=== PATIENT | female | born 1995 | race Caucasian/White ===

== ENCOUNTER 2022-11-25 12:57 | Emergency (ER) | payer OTHER ==
[~2022-11-25] VITALS: Ht 167.6 cm; Wt 45.5 kg
[2022-11-25 13:02] VITALS: TEMP 98.7
[2022-11-25 13:56] LABS: COVID AG,FIA SOURCE NASAL SWAB
[2022-11-25 14:30] LABS: SARS-COV2 (COVID) ANTIGEN,FIA Negative (Negative)
[2022-11-25 14:31] LABS: INFLUENZA TYPE A NEGATIVE FOR TYPE A (NEGATIVE); INFLUENZA TYPE B NEGATIVE FOR TYPE B (NEGATIVE)
[2022-11-25 15:05] LABS: BASOPHILS % (AUTO) 0.7 % (0.0-2.0); EOSINOPHILS % (AUTO) 0.5 % (1.0-6.0); HEMATOCRIT 39.8 % (36-46); HEMOGLOBIN 13.1 g/dL (12.0-16.0); LYMPHOCYTES # (AUTO) 1.7 K/uL (1.0-4.8); LYMPHOCYTES % (AUTO) 16.9 % (22.0-44.0); MEAN CORPUSCULAR HEMOGLOBIN 27.9 pg (26.0-34.0); MEAN CORPUSCULAR HGB CONC 32.9 G/dL (31.0-37.0); MEAN CORPUSCULAR VOLUME 85 fL (80-100); MONOCYTES # (AUTO) 0.6 K/uL (0.1-1.0); MONOCYTES % (AUTO) 5.8 % (2.0-9.0); NEUTROPHILS # (AUTO) 7.8 K/uL (1.8-7.7); NEUTROPHILS % (AUTO) 76.1 % (40.0-70.0); PLATELET COUNT (AUTO) 177 K/uL (150-450); RED CELL DISTRIBUTION WIDTH 14.4 % (11.5-14.5); WHITE BLOOD COUNT (AUTO) 10.2 K/uL (4.5-11.0)
[2022-11-25 15:09] LABS: APPEARANCE,URINE CLEAR (CLEAR); BILIRUBIN,URINE NEGATIVE (NEGATIVE); COLOR,URINE LIGHT YELLOW (YELLOW); GLUCOSE, URINE (UA) NEGATIVE (NEGATIVE); KETONES,URINE 40-60 mg/dL (NEGATIVE); LEUKOCYTE ESTERASE ,URINE NEGATIVE (NEGATIVE); NITRATE,URINE NEGATIVE (NEGATIVE); OCCULT BLOOD,URINE NEGATIVE (NEGATIVE); PH,URINE 5.5 (5.0-8.0); PH,URINE DRUG SCREEN 5.5 (5.0-8.0); PROTEIN,URINE TRACE mg/dL (NEGATIVE); SPECIFIC GRAVITIY, URINE 1.022 (1.003-1.030); UROBILINOGEN,URINE <=1.0 mg/dL (<=1.0)
[2022-11-25 15:12] LABS: ANION GAP 10 mmol/L (8-16); CALCIUM, TOTAL 9.1 mg/dL (8.8-10.5); CARBON DIOXIDE 26 mmol/L (22-29); CHLORIDE 102 mmol/L (98-107); CREATININE 0.61 mg/dL (0.60-1.30); GLOMERULAR FILTR. RATE CALC > 60 mL/min (>60); GLUCOSE,RANDOM 88 mg/dL (70-110); POTASSIUM 4.4 mmol/L (3.5-5.1); SODIUM SERUM 138 mmol/L (136-145); UREA NITROGEN, BLOOD 7 mg/dL (7-18)
[2022-11-25 15:15] LABS: ALCOHOL, URINE DRUG SCREEN NEGATIVE (NEGATIVE); AMPHET/METH SCREEN,URINE NEGATIVE (NEGATIVE); BARBITURATE SCREEN, URINE NEGATIVE (NEGATIVE); BENZODIAZEPINES SCREEN,URINE NEGATIVE (NEGATIVE); CANNABINOID SCREEN,URINE NEGATIVE (NEGATIVE); COCAINE SCREEN,URINE NEGATIVE (NEGATIVE); METHADONE SCREEN, URINE NEGATIVE (NEGATIVE); OPIATE SCREEN,URINE NEGATIVE (NEGATIVE); PHENCYCLIDINE SCREEN,URINE NEGATIVE (NEGATIVE)
[2022-11-25 15:19] LABS: ALANINE AMINOTRANSFERASE 12 U/L (12-78); ALBUMIN 4.4 g/dL (3.4-5.0); ALKALINE PHOSPHATASE 53 U/L (46-116); ASPARTATE AMINOTRANSFERASE 16 U/L (15-37); TOTAL PROTEIN, SERUM 7.7 g/dL (6.4-8.2)
[2022-11-25 15:26] LABS: BACTERIA,URINE None Seen /HPF (None Seen); RBC,URINE None Seen /HPF (0-2); WBC,URINE None Seen /HPF (0-5)
[2022-11-25 15:38] VITALS: BP 106/55; PULSE 66; RESP 18
[2022-11-25] MEDS ORDERED: LORA-1000 PO (15:50)
[2022-11-25] MEDS ORDERED: IBUP-45 PO (15:50)
== END 2022-11-25 15:58 | disposition home or self-care (01) ==
LOC: EMS 13:06
DX: N83.201 Unspecified ovarian cyst, right side (principal); F41.9 Anxiety disorder, unspecified; Z20.822 Contact with and (suspected) exposure to COVID-19
CPT/HCPCS: 71045; 76856; 80053; 80307; 81001; 84703; 85025; 87804; 93005; 99285; 36415-L1; 36415-TC

== ENCOUNTER 2022-12-19 16:30 | Emergency (ER) | payer OTHER ==
[~2022-12-19] VITALS: Ht 162.6 cm; Wt 44.5 kg
[~2022-12-19 16:30] MED LIST: IBUP-45 PO; LORA-1000 PO
[2022-12-19 16:48] VITALS: BP 99/57; PULSE 84; RESP 18; TEMP 98.9
[2022-12-19 17:12] LABS: COVID AG,FIA SOURCE NASAL SWAB
[2022-12-19 17:32] LABS: INFLUENZA TYPE A NEGATIVE FOR TYPE A (NEGATIVE); INFLUENZA TYPE B NEGATIVE FOR TYPE B (NEGATIVE)
[2022-12-19 17:40] LABS: SARS-COV2 (COVID) ANTIGEN,FIA Positive (Negative)
== END 2022-12-19 19:12 | disposition left against medical advice (07) ==
LOC: EMS 16:31
DX: R07.89 Other chest pain (principal); R05.9 Cough, unspecified; R53.81 Other malaise; Z20.822 Contact with and (suspected) exposure to COVID-19; Z53.21 Procedure and treatment not carried out due to patient leaving prior to being seen by health care provider
CPT/HCPCS: 87804; 99281; Z7502

== ENCOUNTER 2023-08-10 07:05 | Emergency (ER) | payer OTHER ==
[~2023-08-10] VITALS: Ht 165.1 cm; Wt 47.3 kg
[2023-08-10 07:08] VITALS: TEMP 97.8
[2023-08-10 07:43] VITALS: BP 104/71; PULSE 68; RESP 16
[2023-08-10] MEDS ORDERED: TRAM50TA5 PO (07:49)
[2023-08-10] MEDS: TraMADol HCL 50 MG TABLET PO ONE (08:17)
== END 2023-08-10 08:29 | disposition home or self-care (01) ==
LOC: EMS 07:05
DX: S52.202A Unspecified fracture of shaft of left ulna, initial encounter for closed fracture (principal); X58.XXXA Exposure to other specified factors, initial encounter; Y93.89 Activity, other specified; Y92.89 Other specified places as the place of occurrence of the external cause; Y99.8 Other external cause status
CPT/HCPCS: 99284; 73090-TC; 73110-TC; Z7502; Z7610

== ENCOUNTER 2023-08-22 20:37 | Emergency (ER) | payer OTHER ==
[~2023-08-22] VITALS: Ht 165.1 cm; Wt 40.9 kg
[~2023-08-22 20:37] MED LIST changes: +TRAM50TA5 PO
[2023-08-22 20:42] VITALS: BP 106/67; PULSE 115; RESP 16; TEMP 97.6
[2023-08-22 21:25] LABS: EOSINOPHILS % (AUTO) 2.3 % (1.0-6.0); HEMATOCRIT 42.8 % (36-46); HEMOGLOBIN 14.1 g/dL (12.0-16.0); LYMPHOCYTES # (AUTO) 2.6 K/uL (1.0-4.8); MEAN CORPUSCULAR HEMOGLOBIN 27.6 pg (26.0-34.0); MEAN CORPUSCULAR VOLUME 84 fL (80-100); MONOCYTES # (AUTO) 0.6 K/uL (0.1-1.0); NEUTROPHILS # (AUTO) 5.4 K/uL (1.8-7.7); NEUTROPHILS % (AUTO) 60.7 % (40.0-70.0); PLATELET COUNT (AUTO) 254 K/uL (150-450); RED BLOOD CELL COUNT(AUTO) 5.12 MIL/uL (4.00-5.20); RED CELL DISTRIBUTION WIDTH 14.5 % (11.5-14.5); WHITE BLOOD COUNT (AUTO) 8.8 K/uL (4.5-11.0)
[2023-08-22 21:34] LABS: ANION GAP 9 mmol/L (8-16); CALCIUM, TOTAL 9.6 mg/dL (8.8-10.5); CARBON DIOXIDE 30 mmol/L (22-29); CHLORIDE 99 mmol/L (98-107); GLOMERULAR FILTR. RATE CALC > 60 mL/min (>60); GLUCOSE,RANDOM 113 mg/dL (70-110); POTASSIUM 3.6 mmol/L (3.5-5.1); SODIUM SERUM 138 mmol/L (136-145); UREA NITROGEN, BLOOD 11 mg/dL (7-18)
[2023-08-22 21:38] LABS: B-TYPE NATRIURETIC PEPTIDE 6 pg/mL (0-100)
[2023-08-22 21:40] LABS: GLUCOMETER DEV NAME(LOC) ER.7; GLUCOSE,POINT OF CARE 96 MG/DL (70-110)
[2023-08-22 21:41] LABS: ALANINE AMINOTRANSFERASE 31 U/L (12-78); ALBUMIN 4.5 g/dL (3.4-5.0); ALKALINE PHOSPHATASE 64 U/L (46-116); ASPARTATE AMINOTRANSFERASE 28 U/L (15-37); BILIRUBIN,TOTAL 0.7 mg/dL (0.1-1.0); CREATINE KINASE, TOTAL ONLY 49 U/L (26-192); PHOSPHORUS 4.6 mg/dL (2.5-4.9); TOTAL PROTEIN, SERUM 8.8 g/dL (6.4-8.2)
[2023-08-22 21:43] LABS: TROPONIN I-HIGH SENSITIVITY Less Than 4 ng/L (<51)
== END 2023-08-22 22:39 | disposition home or self-care (01) ==
LOC: EMS 20:38
DX: R53.1 Weakness (principal)
CPT/HCPCS: 71045; 80053; 82550; 82962; 83735; 83880; 84100; 84484; 84703; 85025; 93005; 99285; 36415-L1; 36415-TC

== ENCOUNTER 2024-04-19 00:29 | Emergency (ER) | payer OTHER ==
[~2024-04-19] VITALS: Ht 165.1 cm; Wt 40.9 kg
[~2024-04-19 00:29] MED LIST changes: -LORA-1000 PO; +LORA1TAB25 PO
[2024-04-19 00:40] VITALS: BP 94/56; PULSE 94; RESP 18; TEMP 98.3; O2SAT 100
[2024-04-19] MEDS ORDERED: HYDR-4072 PO (15:30)
== END 2024-04-19 01:39 | disposition left against medical advice (07) ==
LOC: EMS 00:30
DX: M79.632 Pain in left forearm (principal); Z53.21 Procedure and treatment not carried out due to patient leaving prior to being seen by health care provider

== ENCOUNTER 2024-04-19 12:35 | Emergency (ER) | payer OTHER ==
[~2024-04-19] VITALS: Ht 165.1 cm; Wt 41.8 kg
[2024-04-19 12:39] VITALS: TEMP 98
[2024-04-19] MEDS: TraMADol HCL 50 MG TABLET PO ONE (13:30)
[2024-04-19] MEDS: ACETAMINOPHEN 325 MG TABLET PO ONE (14:36)
[2024-04-19] MEDS: IBUPROFEN 400 MG TABLET PO ONE (14:36)
[2024-04-19] MEDS: OxyCODONE HCL 5 MG IR TABLET PO ONE (14:36)
[2024-04-19] MEDS ORDERED: HYDR-4072 PO (15:30)
[2024-04-19 15:47] VITALS: BP 91/64; PULSE 63; RESP 14; O2SAT 99
== END 2024-04-19 15:48 | disposition home or self-care (01) ==
LOC: EMS 12:35
DX: S52.602A Unspecified fracture of lower end of left ulna, initial encounter for closed fracture (principal); F41.9 Anxiety disorder, unspecified; X58.XXXA Exposure to other specified factors, initial encounter; Y93.K1 Activity, walking an animal; Y92.89 Other specified places as the place of occurrence of the external cause; Y99.8 Other external cause status
CPT/HCPCS: 99284; 73090-TC; 73100-TC; Z7502; Z7610

== ENCOUNTER 2024-10-29 13:30 | Emergency (ER) | payer OTHER ==
[~2024-10-29] VITALS: Ht 165.1 cm; Wt 4.2 kg
[~2024-10-29 13:30] MED LIST changes: +HYDR-4072 PO
[2024-10-29 13:35] VITALS: TEMP 98.1
[2024-10-29] MEDS ORDERED: IBUP-1492 PO (15:49)
[2024-10-29] MEDS ORDERED: DIPH-1243 PO (15:49)
[2024-10-29] MEDS: KETOROLAC TROMETHAMINE 30 MG/ML VIAL IM ONE (15:59)
[2024-10-29 16:15] VITALS: BP 102/60; PULSE 74; RESP 15; O2SAT 100
== END 2024-10-29 16:16 | disposition home or self-care (01) ==
LOC: EMS 13:30
DX: H00.011 Hordeolum externum right upper eyelid (principal); F41.9 Anxiety disorder, unspecified; Z98.890 Other specified postprocedural states; Z79.899 Other long term (current) drug therapy
CPT/HCPCS: 99283; 96372; J1885